=== PATIENT | male | born 1990 | race Caucasian/White ===

== ENCOUNTER 2016-10-06 02:54 | Emergency (ER) | payer MEDICAID, OTHER ==
--- NOTE | 2016-10-06 05:16 | EDDOCDS ---
Physician Documentation [facility] Name: Ramana Encarnacion Age: 26 yrs Sex: Male : 1990 Arrival Date: 10/06/2016 Time: 02:54 Bed 8 Private MD: Disposition: 10/06/16 05:04 Discharged to Home/Self Care. Impression: Contusion of unspecified part of head, Contusion of left front wall of thorax. - Condition is Stable. - Medication Reconciliation, Local Pharmacy Hours form. - Follow up: Private Physician; When: Call to arrange an appointment; Reason: Recheck today's complaints. - Problem is new. - Symptoms have improved. Historical: - Allergies: IV Contrast; - Home Meds: 1. ibuprofen 600 mg Oral tab as needed (Last dose: 10/06/2016 02:30) - PMHx: urticaria pigmatosis; nerve ending condition; - PSHx: none; - Social history: Smoking status: Patient states was never smoker of tobacco. No barriers to communication noted, The patient speaks fluent [place], Speaks appropriately for age. - Family history: No immediate family members are acutely ill. - : The pt / caregiver states he / she is not on anticoagulants. Home medication list is obtained from the patient. - Exposure Risk Screening:: None identified. Vital Signs: 10/06 03:05 BP 121 / 59; Pulse 64; Resp 20; Temp 96.9(O); Pulse Ox 97% on R/A; Weight 90.72 kg / js15 200 lbs; Height 5 ft. 10 in. (177.80 cm); Pain 4/10; 05:14 BP 137 / 61; Pulse 61; Resp 18; Temp 98(TE); Pulse Ox 96% on R/A; nn1 03:05 Body Mass Index 28.70 (90.72 kg, 177.80 cm) js15 MDM: 04:02 CT Head Without Contrast Ordered. EDMS 04:22 Financial registration complete. hs2 04:22 [facility] Payment Agreement was scanned into [employer] and attached to record. hs2 Signatures: Dispatcher [employer] EDMS John Capellan DO DO cs11 Geetha QuintanillaRN RN js15 Gume Lantigua RN RN nn1 Morena Womack, Reg Reg hs2 The chart was reviewed and I authenticate all verbal orders and agree with the evaluation and treatment provided.Attachments: 04:22 [facility] Payment Agreement hs2 MTDD
--- NOTE | 2016-10-06 05:16 | EDDOCDS ---
Nurse's Notes [facility] Name: Ramana Encarnacion Age: 26 yrs Sex: Male : 1990 Arrival Date: 10/06/2016 Time: 02:54 Bed 8 Private MD: Diagnosis: Contusion of unspecified part of head;Contusion of left front wall of thorax Presentation: 10/06 02:58 Presenting complaint: Patient states: "I fell down the concrete steps in front of my 15 house because it was icy." Pt complains of pain in head, unsure of whether or not he lost consciousness. Also complains of pain in left rib cage, left ankle, left shoulder. Suicide/Homicide risk assessment- the patient denies having any suicidal and/or homicidal ideations and does not present with any other emotional, behavioral or mental health complaints. Status: Patient is not a senior service technician or dependent. Transition of care: patient was not received from another setting of care. 02:58 Acuity: TOM Level 4 [facility] 02:58 Method Of Arrival: Walkin/Carried/Asstd [facility] 03:06 Adult Sepsis Screening: The patient does not have new or worsening altered mentation. js15 Patient's respiratory rate is less than 22. Systolic blood pressure is greater than 100. Patient has a qSOFA score of 0- Negative Sepsis Screen. Triage Assessment: 03:02 General: Appears in no apparent distress, comfortable, Behavior is appropriate for age, js15 cooperative. Pain: Location: head, left lateral anterior chest, anterior aspect of left shoulder, posterior aspect of left shoulder, left axilla and left medial malleolus Pain currently is 4 out of 10 on a pain scale. HIV screening NA for this visit Offered previously. Neurological: Level of Consciousness is awake, alert, obeys commands, Oriented to person, place, time, Moves all extremities. Full function Gait is steady, Speech is normal, Facial symmetry appears normal. Derm: Skin is pink, warm & dry. Musculoskeletal: Range of motion intact in all extremities. Historical: - Allergies: IV Contrast; - Home Meds: 1. ibuprofen 600 mg Oral tab as needed (Last dose: 10/06/2016 02:30) - PMHx: urticaria pigmatosis; nerve ending condition; - PSHx: none; - Social history: Smoking status: Patient states was never smoker of tobacco. No barriers to communication noted, The patient speaks fluent [place], Speaks appropriately for age. - Family history: No immediate family members are acutely ill. - : The pt / caregiver states he / she is not on anticoagulants. Home medication list is obtained from the patient. - Exposure Risk Screening:: None identified. Screenin:14 Screening information is obtained from the patient. Fall risk: No risks identified. nn1 Assistance ADL's: requires no assistance with activities of daily living. Abuse/DV Screen: The patient / caregiver reports he/she is: not in a situation that causes fear, pain or injury. Nutritional screening: No deficits noted. Advance Directives: Currently, there is no health care proxy. home support is adequate. Assessment: 03:20 General: Appears in no apparent distress, comfortable, Behavior is appropriate for age, nn1 cooperative. Pain: Location: left rib, left head Pain currently is 5 out of 10 on a pain scale. Pain began 1 hour ago. Neurological: Level of Consciousness is awake, alert, obeys commands, Oriented to person, place, time, Moves all extremities. Cardiovascular: Capillary refill < 3 seconds. Respiratory: Airway is patent Respiratory effort is even, unlabored, Respiratory pattern is regular, symmetrical, Breath sounds are clear bilaterally. Reports shortness of breath at the time of fall. GI: Abdomen is non- distended Bowel sounds present X 4 quads. Abd is soft and non tender X 4 quads. Derm: Skin is normal. Musculoskeletal: Circulation, motion, and sensation intact Capillary refill < 3 seconds Range of motion intact in all extremities. No deformity noted Swelling absent. 04:15 General: Appears in no apparent distress, comfortable, Patient back from radiology. No nn1 change in condition at this time. . 05:14 General: Appears in no apparent distress, comfortable, Behavior is appropriate for age, nn1 cooperative. Neurological: Level of Consciousness is awake, alert, Oriented to person, place, time. Respiratory: Airway is patent Respiratory effort is even, unlabored, Respiratory pattern is regular, symmetrical. Derm: Skin is normal. Vital Signs: 03:05 BP 121 / 59; Pulse 64; Resp 20; Temp 96.9(O); Pulse Ox 97% on R/A; Weight 90.72 kg; js15 Height 5 ft. 10 in. (177.80 cm); Pain 4/10; 05:14 BP 137 / 61; Pulse 61; Resp 18; Temp 98(TE); Pulse Ox 96% on R/A; nn1 03:05 Body Mass Index 28.70 (90.72 kg, 177.80 cm) 15 Vitals: 03:02 Log In Time: October 06, 2016 at 02:54. js15 ED Course: 02:56 Patient visited by Salvador Child, Reg. pm4 02:56 Patient moved to Waiting pm4 02:58 Patient moved to Pre RCE js15 03:00 Triage Initiated js15 03:06 Patient moved to 8 js15 03:57 John Capellan DO is Attending Physician. cs11 03:57 Patient visited by John Capellan DO. cs11 04:22 [facility] Payment Agreement was scanned into [employer] and attached to record. hs2 05:01 Patient visited by Gume Lantigua RN. nn1 05:14 No IV's were initiated during this patient's visit. No procedures done that require nn1 assistance. 05:15 The patient / caregiver is instructed regarding the plan of care and ED course. nn1 Order Results: There are currently no results for this order. Outcome: 05:04 Discharge ordered by Provider. cs11 05:15 Discharge Assessment: Patient awake, alert and oriented x 3. No cognitive and/or nn1 functional deficits noted. Patient verbalized understanding of disposition instructions. patient administered narcotics - no. The following High Risk Discharge criteria are identified: None. Discharged to home ambulatory, with friend. Condition: stable. Condition: unchanged. CT Study completed. Property :Personal belongings accompany Pt. 05:15 Patient left the ED. nn1 Signatures: John Capellan DO DO cs11 Geetha Quintanilla RN RN js15 Gume Lantigua,RN RN nn1 Morena Womack, Reg Reg hs2 Salvador Child, Reg Reg pm4 [facility]
--- NOTE | 2016-10-08 06:16 | EDDOCDS ---
Physician Documentation [facility] Name: Ramana Encarnacion Age: 26 yrs Sex: Male : 1990 Arrival Date: 10/06/2016 Time: 02:54 Bed 8 Private MD: Disposition: 10/06/16 05:04 Discharged to Home/Self Care. Impression: Contusion of unspecified part of head, Contusion of left front wall of thorax. - Condition is Stable. - Medication Reconciliation, Local Pharmacy Hours form. - Follow up: Private Physician; When: Call to arrange an appointment; Reason: Recheck today's complaints. - Problem is new. - Symptoms have improved. Historical: - Allergies: IV Contrast; - Home Meds: 1. ibuprofen 600 mg Oral tab as needed (Last dose: 10/06/2016 02:30) - PMHx: urticaria pigmatosis; nerve ending condition; - PSHx: none; - Social history: Smoking status: Patient states was never smoker of tobacco. No barriers to communication noted, The patient speaks fluent [place]amb[place], Speaks appropriately for age. - Family history: No immediate family members are acutely ill. - : The pt / caregiver states he / she is not on anticoagulants. Home medication list is obtained from the patient. - Exposure Risk Screening:: None identified. Vital Signs: 10/06 03:05 BP 121 / 59; Pulse 64; Resp 20; Temp 96.9(O); Pulse Ox 97% on R/A; Weight 90.72 kg / js15 200 lbs; Height 5 ft. 10 in. (177.80 cm); Pain 4/10; 05:14 BP 137 / 61; Pulse 61; Resp 18; Temp 98(TE); Pulse Ox 96% on R/A; nn1 03:05 Body Mass Index 28.70 (90.72 kg, 177.80 cm) js15 MDM: 04:02 CT Head Without Contrast Ordered. EDMS 04:22 Financial registration complete. hs2 04:22 [facility] Payment Agreement was scanned into [employer] and attached to record. hs2 14:26 T-Sheet-- Draft Copy was scanned into [employer] and attached to record. gb Signatures: Dispatcher [employer] EDMS Dilma Piznon, Reg Reg gb John Capellan, DO cs11 Quintanilla,Geetha,RN RN js15 Gume Lantigua,RN RN nn1 Morena Womack, Reg Reg hs2 The chart was reviewed and I authenticate all verbal orders and agree with the evaluation and treatment provided.Attachments: 04:22 [facility] Payment Agreement hs2 14:26 T-Sheet-- Draft Copy gb Chart Complete MTDD
--- NOTE | 2016-10-08 06:16 | EDDOCDS ---
Physician Documentation [facility] Name: Ramana Encarnacion Age: 26 yrs Sex: Male : 1990 Arrival Date: 10/06/2016 Time: 02:54 Bed 8 Private MD: Disposition: 10/06/16 05:04 Discharged to Home/Self Care. Impression: Contusion of unspecified part of head, Contusion of left front wall of thorax. - Condition is Stable. - Medication Reconciliation, Local Pharmacy Hours form. - Follow up: Private Physician; When: Call to arrange an appointment; Reason: Recheck today's complaints. - Problem is new. - Symptoms have improved. Historical: - Allergies: IV Contrast; - Home Meds: 1. ibuprofen 600 mg Oral tab as needed (Last dose: 10/06/2016 02:30) - PMHx: urticaria pigmatosis; nerve ending condition; - PSHx: none; - Social history: Smoking status: Patient states was never smoker of tobacco. No barriers to communication noted, The patient speaks fluent Maltese, Speaks appropriately for age. - Family history: No immediate family members are acutely ill. - : The pt / caregiver states he / she is not on anticoagulants. Home medication list is obtained from the patient. - Exposure Risk Screening:: None identified. Vital Signs: 10/06 03:05 BP 121 / 59; Pulse 64; Resp 20; Temp 96.9(O); Pulse Ox 97% on R/A; Weight 90.72 kg / js15 200 lbs; Height 5 ft. 10 in. (177.80 cm); Pain 4/10; 05:14 BP 137 / 61; Pulse 61; Resp 18; Temp 98(TE); Pulse Ox 96% on R/A; nn1 03:05 Body Mass Index 28.70 (90.72 kg, 177.80 cm) js15 MDM: 04:02 CT Head Without Contrast Ordered. EDMS 04:22 Financial registration complete. hs2 04:22 [facility] Payment Agreement was scanned into [employer] and attached to record. hs2 14:26 T-Sheet-- Draft Copy was scanned into [employer] and attached to record. gb Signatures: Dispatcher [employer] EDMS Dilma Pinzon, Reg Reg gb John Capellan, DO cs11 Quintanilla,Geetha,RN RN js15 Gume Lantigua,RN RN nn1 Morena Womack, Reg Reg hs2 The chart was reviewed and I authenticate all verbal orders and agree with the evaluation and treatment provided.Attachments: 04:22 [facility] Payment Agreement hs2 14:26 T-Sheet-- Draft Copy gb Chart Complete MTDD
--- NOTE | 2016-10-08 06:16 | EDDOCDS ---
Nurse's Notes [facility] Name: Ramana Encarnacion Age: 26 yrs Sex: Male : 1990 Arrival Date: 10/06/2016 Time: 02:54 Bed 8 Private MD: Diagnosis: Contusion of unspecified part of head;Contusion of left front wall of thorax Presentation: 10/06 02:58 Presenting complaint: Patient states: "I fell down the concrete steps in front of my 15 house because it was icy." Pt complains of pain in head, unsure of whether or not he lost consciousness. Also complains of pain in left rib cage, left ankle, left shoulder. Suicide/Homicide risk assessment- the patient denies having any suicidal and/or homicidal ideations and does not present with any other emotional, behavioral or mental health complaints. Status: Patient is not a answering service operator or dependent. Transition of care: patient was not received from another setting of care. 02:58 Acuity: TOM Level 4 [facility] 02:58 Method Of Arrival: Walkin/Carried/Asstd [facility] 03:06 Adult Sepsis Screening: The patient does not have new or worsening altered mentation. js15 Patient's respiratory rate is less than 22. Systolic blood pressure is greater than 100. Patient has a qSOFA score of 0- Negative Sepsis Screen. Triage Assessment: 03:02 General: Appears in no apparent distress, comfortable, Behavior is appropriate for age, js15 cooperative. Pain: Location: head, left lateral anterior chest, anterior aspect of left shoulder, posterior aspect of left shoulder, left axilla and left medial malleolus Pain currently is 4 out of 10 on a pain scale. HIV screening NA for this visit Offered previously. Neurological: Level of Consciousness is awake, alert, obeys commands, Oriented to person, place, time, Moves all extremities. Full function Gait is steady, Speech is normal, Facial symmetry appears normal. Derm: Skin is pink, warm & dry. Musculoskeletal: Range of motion intact in all extremities. Historical: - Allergies: IV Contrast; - Home Meds: 1. ibuprofen 600 mg Oral tab as needed (Last dose: 10/06/2016 02:30) - PMHx: urticaria pigmatosis; nerve ending condition; - PSHx: none; - Social history: Smoking status: Patient states was never smoker of tobacco. No barriers to communication noted, The patient speaks fluent [place], Speaks appropriately for age. - Family history: No immediate family members are acutely ill. - : The pt / caregiver states he / she is not on anticoagulants. Home medication list is obtained from the patient. - Exposure Risk Screening:: None identified. Screenin:14 Screening information is obtained from the patient. Fall risk: No risks identified. nn1 Assistance ADL's: requires no assistance with activities of daily living. Abuse/DV Screen: The patient / caregiver reports he/she is: not in a situation that causes fear, pain or injury. Nutritional screening: No deficits noted. Advance Directives: Currently, there is no health care proxy. home support is adequate. Assessment: 03:20 General: Appears in no apparent distress, comfortable, Behavior is appropriate for age, nn1 cooperative. Pain: Location: left rib, left head Pain currently is 5 out of 10 on a pain scale. Pain began 1 hour ago. Neurological: Level of Consciousness is awake, alert, obeys commands, Oriented to person, place, time, Moves all extremities. Cardiovascular: Capillary refill < 3 seconds. Respiratory: Airway is patent Respiratory effort is even, unlabored, Respiratory pattern is regular, symmetrical, Breath sounds are clear bilaterally. Reports shortness of breath at the time of fall. GI: Abdomen is non- distended Bowel sounds present X 4 quads. Abd is soft and non tender X 4 quads. Derm: Skin is normal. Musculoskeletal: Circulation, motion, and sensation intact Capillary refill < 3 seconds Range of motion intact in all extremities. No deformity noted Swelling absent. 04:15 General: Appears in no apparent distress, comfortable, Patient back from radiology. No nn1 change in condition at this time. . 05:14 General: Appears in no apparent distress, comfortable, Behavior is appropriate for age, nn1 cooperative. Neurological: Level of Consciousness is awake, alert, Oriented to person, place, time. Respiratory: Airway is patent Respiratory effort is even, unlabored, Respiratory pattern is regular, symmetrical. Derm: Skin is normal. Vital Signs: 03:05 BP 121 / 59; Pulse 64; Resp 20; Temp 96.9(O); Pulse Ox 97% on R/A; Weight 90.72 kg; js15 Height 5 ft. 10 in. (177.80 cm); Pain 4/10; 05:14 BP 137 / 61; Pulse 61; Resp 18; Temp 98(TE); Pulse Ox 96% on R/A; nn1 03:05 Body Mass Index 28.70 (90.72 kg, 177.80 cm) js15 Vitals: 03:02 Log In Time: October 06, 2016 at 02:54. js15 ED Course: 02:56 Patient visited by Salvador Child Reg. pm4 02:56 Patient moved to Waiting pm4 02:58 Patient moved to Pre RCE js15 03:00 Triage Initiated js15 03:06 Patient moved to 8 js15 03:57 John Capellan DO is Attending Physician. cs11 03:57 Patient visited by John Capellan DO. cs11 04:22 [facility] Payment Agreement was scanned into [employer] and attached to record. hs2 05:01 Patient visited by Gume Lantigua RN. nn1 05:14 No IV's were initiated during this patient's visit. No procedures done that require nn1 assistance. 05:15 The patient / caregiver is instructed regarding the plan of care and ED course. nn1 05:34 CT Head Without Contrast Returned. EDMS 14:26 T-Sheet-- Draft Copy was scanned into [employer] and attached to record. gb Order Results: Radiology Order: CT Head Without Contrast Test: CT Head Without Contrast REASON FOR EXAMINATION: Trauma; ; CLINICAL HISTORY: Head trauma.; TECHNIQUE: Multiple axial brain CT scan sections were obtained from base to vertex without contrast a; dministration.; COMMENTS:; There is no evidence of skull fracture.; The study shows normal configuration of sella turcica. There are no intra or extra-axial collections.; There is no mass effect or midline shift. There is no evidence of hematoma formation. No hydrocephal; us is present. No abnormal calcifications are noted.; No significant abnormalities are seen either in the posterior fossa or supratentorial compartment.; The sinuses and mastoid air cells are patent.; IMPRESSION:; No evidence of acute intracranial pathology. No intracranial hemorrhage or skull fracture.; Thank you for your kind referral of this patient.; ; Outcome: 05:04 Discharge ordered by Provider. cs11 05:15 Discharge Assessment: Patient awake, alert and oriented x 3. No cognitive and/or nn1 functional deficits noted. Patient verbalized understanding of disposition instructions. patient administered narcotics - no. The following High Risk Discharge criteria are identified: None. Discharged to home ambulatory, with friend. Condition: stable. Condition: unchanged. CT Study completed. Property :Personal belongings accompany Pt. 05:15 Patient left the ED. nn1 Signatures: Dispatcher [employer] EDMS Dilma Pinzon, Reg Reg gb John Capellan, DO DO cs11 Geetha Quintanilla,RN RN js15 Gume LantiguaRN RN nn1 Morena Womack, Reg Reg hs2 Salvador Child, Reg Reg pm4 Chart Complete MTDD
== END 2016-10-06 05:15 | disposition home or self-care (01) ==
LOC: M ED 02:54
DX: S00.83XA Contusion of other part of head, initial encounter (principal); S20.212A Contusion of left front wall of thorax, initial encounter; W10.9XXA Fall (on) (from) unspecified stairs and steps, initial encounter; Y92.019 Unspecified place in single-family (private) house as the place of occurrence of the external cause; Y93.01 Activity, walking, marching and hiking; Y99.8 Other external cause status; L50.9 Urticaria, unspecified; Z79.899 Other long term (current) drug therapy; Z91.041 Radiographic dye allergy status

== ENCOUNTER 2016-12-17 10:24 | Emergency (ER) | payer OTHER ==
[~2016-12-17] VITALS: Ht 177.8 cm; Wt 90.7 kg
[2016-12-17] MEDS ORDERED: ACET500C PO (10:36)
[2016-12-17] MEDS ORDERED: IBUPROFEN 600 MG TAB PO ONE (11:00)
[2016-12-17] MEDS ORDERED: IBUP600T26 PO (11:23)
--- NOTE | 2016-12-17 11:33 | REP ---
LEFT ANKLE: Four views. There is no evidence of an acute fracture, dislocation or intrinsic bone disease. The ankle mortise is anatomic. IMPRESSION: No fracture or dislocation. Signed by Jordon Welsh MD 12/17/2016 04:51 P
--- NOTE | 2016-12-17 11:34 | REP ---
LEFT LOWER LEG, TWO VIEWS: There is no evidence of an acute fracture, dislocation or intrinsic bone disease. IMPRESSION: No fracture or dislocation. Signed by Jordon Welsh MD 12/17/2016 04:51 P
[2016-12-17 11:36] VITALS: BP 144/70
== END 2016-12-17 11:37 | disposition home or self-care (01) ==
LOC: M ED 11:14
DX: S93.402A Sprain of unspecified ligament of left ankle, initial encounter (principal); V19.40XA Pedal cycle driver injured in collision with unspecified motor vehicles in traffic accident, initial encounter; Y92.410 Unspecified street and highway as the place of occurrence of the external cause; Y93.55 Activity, bike riding; Y99.9 Unspecified external cause status

== ENCOUNTER 2017-05-26 22:12 | Emergency (ER) | payer OTHER ==
[~2017-05-26] VITALS: Ht 180.3 cm; Wt 95.5 kg
[~2017-05-26 22:12] MED LIST: ACET500C PO; IBUP-1022 PO
[2017-05-26] MEDS ORDERED: ACETAMINOPHEN TAB 650MG DOSE (2X325MG) PO ONE (23:00)
--- NOTE | 2017-05-26 23:30 | REPUSA ---
CT of the abdomen and pelvis without contrast Clinical statement: trauma. Technique: Multiple axial CT images were obtained from the base of the lungs to the floor of the pelv is utilizing 5 mm axial slices without administration of contrast. Coronal and sagittal reconstructio ns were also obtained. No comparison is available. Findings: Chest: The visualized lung bases are clear. Abdomen: The kidneys are normal in size bilaterally. There is no evidence of hydronephrosis or nephro lithiasis. The liver, spleen, pancreas, gallbladder and adrenal glands are unremarkable. The aorta de monstrates normal caliber and contour. There is no abdominal lymphadenopathy or ascites. Pelvis: The bowel is unremarkable, with no obstructive or inflammatory changes. The appendix is jonh l. The urinary bladder is within normal limits. There is no pelvic lymphadenopathy or ascites. The ot her pelvic structures appear unremarkable. Bones: There are no suspicious osseous abnormalities seen. Impression: Unremarkable CT examination of the abdomen and pelvis.
--- NOTE | 2017-05-26 23:30 | REPUSA ---
CT of the chest without contrast Clinical statement: trauma. Technique: Multiple axial CT images were obtained with 5 mm cuts through the chest without administra tion of contrast. No comparison is available. Findings: There is no thoracic lymphadenopathy. The visualized portions of the thyroid gland is unrem arkable. There are no pericardial or pleural effusions. The lungs are clear. Limited imaging of the u pper abdomen does not demonstrate any acute abnormalities. There are no suspicious osseous lesions. Impression: Unremarkable CT examination of the chest.
[2017-05-26 23:51] VITALS: BP 121/73
== END 2017-05-26 23:51 | disposition home or self-care (01) ==
LOC: M ED 22:12
DX: S30.1XXA Contusion of abdominal wall, initial encounter (principal); W01.198A Fall on same level from slipping, tripping and stumbling with subsequent striking against other object, initial encounter; Y92.099 Unspecified place in other non-institutional residence as the place of occurrence of the external cause; Y93.89 Activity, other specified; Y99.9 Unspecified external cause status

== ENCOUNTER 2017-09-24 22:43 | Emergency (ER) | payer OTHER ==
[2017-09-25] MEDS: NS 1,000 ML IV (01:15)
[2017-09-25 01:30] LABS: BASO % 0.1 % (0.0-1.0); EOS % 0.1 % (0.0-3.0); HEMATOCRIT 50.3 % (42.0-52.0); HEMOGLOBIN 17.3 g/dl (14.0-18.0); IMMATURE GRANULOCYTE % 0.3 % (0-0); LYMPH # 1.1 10^3/uL (1.5-6.5); LYMPH % 11.5 % (24.0-44.0); MEAN CORPUSCULAR HEMOGLOBIN 29.4 pg (27.0-33.0); MEAN CORPUSCULAR HGB CONC 34.4 g/dl (32.0-36.5); MEAN CORPUSCULAR VOLUME 85.5 fl (80.0-96.0); MONO # 0.7 10^3/uL (0.0-0.8); MONO % 6.9 % (0.0-5.0); NEUTROPHILS # 7.7 10^3/uL (1.8-7.7); NEUTROPHILS % 81.1 % (36.0-66.0); PLATELET COUNT, AUTOMATED 253 10^3/uL (150-450); RED BLOOD COUNT 5.88 10^6/uL (4.30-6.10); RED CELL DISTRIBUTION WIDTH 11.9 % (11.5-14.5); WHITE BLOOD COUNT 9.6 10^3/uL (4.0-10.0)
[2017-09-25 01:59] LABS: ALBUMIN 4.1 GM/DL (3.2-5.2); ALBUMIN/GLOBULIN RATIO 1.14 (1.00-1.93); ALKALINE PHOSPHATASE 93 U/L (45-117); ALT/SGPT 51 U/L (12-78); ANION GAP 6 MEQ/L (8-16); AST/SGOT 31 U/L (7-37); BILIRUBIN,DIRECT 0.2 MG/DL (0.0-0.2); BILIRUBIN,TOTAL 0.8 MG/DL (0.2-1.0); BLOOD UREA NITROGEN 14 MG/DL (7-18); CALCIUM LEVEL 8.8 MG/DL (8.5-10.1); CARBON DIOXIDE LEVEL 30 MEQ/L (21-32); CHLORIDE LEVEL 99 MEQ/L (98-107); CREATININE FOR GFR 1.22 MG/DL (0.70-1.30); GLOMERULAR FILTRATION RATE > 60.0 (>60); GLUCOSE, FASTING 104 MG/DL (70-105); LIPASE 120 U/L (73-393); SODIUM LEVEL 135 MEQ/L (136-145); TOTAL PROTEIN 7.7 GM/DL (6.4-8.2)
== END 2017-09-25 02:37 | disposition home or self-care (01) ==
LOC: M ED 22:43
DX: K52.9 Noninfective gastroenteritis and colitis, unspecified (principal); Z91.041 Radiographic dye allergy status
CPT/HCPCS: 83690

== ENCOUNTER 2018-05-09 18:37 | Emergency (ER) | payer OTHER ==
[2018-05-09 18:07] LABS: KETONE, URINE AUTO RFX NEGATIVE (NEGATIVE); LEUKOCYTE ESTERASE UR AUTO RFX NEGATIVE (NEGATIVE); NITRITE, URINE AUTO RFX NEGATIVE (NEGATIVE); RBC, URINE AUTO RFX 19 /HPF (0-3); SPECIFIC GRAVITY UR AUTO RFX 1.023 (1.002-1.035); SQUAM EPITHELIAL CELL UR AURFX 0 /HPF (0-6); WBC, URINE AUTO RFX 2 /HPF (0-3)
[2018-05-09] MEDS: metroNIDAZOLE (FLAGYL) 500 MG TAB PO (18:46)
[2018-05-09] MEDS: CIPROFLOXACIN 500 MG TAB PO (18:46)
== END 2018-05-09 18:56 | disposition home or self-care (01) ==
LOC: M ED 18:37
DX: K57.32 Diverticulitis of large intestine without perforation or abscess without bleeding (principal); Z91.041 Radiographic dye allergy status
CPT/HCPCS: 71101

== ENCOUNTER → 2020-11-27 | Outpatient (CLI) | payer OTHER ==
[~2020-11-27] MED LIST changes: +CIPR-249 PO; +FLAG500T PO; +OMEP-221; +ZOFR4TAB14 PO
== END ==
LOC: M LABSMTC 11:18
PROVIDERS: ATTEND Anesthesiology
DX: Z01.812 Encounter for preprocedural laboratory examination (principal); Z20.822 Contact with and (suspected) exposure to COVID-19

== ENCOUNTER → 2021-03-03 | Outpatient (CLI) | payer OTHER | LOC: M LABSMTC 09:47 | PROVIDERS: ATTEND Anesthesiology | DX: Z01.812 Encounter for preprocedural laboratory examination (principal); Z20.822 Contact with and (suspected) exposure to COVID-19 ==